=== PATIENT | female | born 1980 | race Two or more races ===

== ENCOUNTER 2024-04-09 12:23 | Emergency (ER) | payer OTHER ==
[~2024-04-09] VITALS: Ht 149.9 cm; Wt 68.0 kg
[2024-04-09] MEDS ORDERED: DEXAMETHASONE SODIUM PHOSPHATE 4 MG/ML VIAL IM STA (15:07)
[2024-04-09] MEDS ORDERED: ORPHENADRINE CITRATE 30 MG/ML AMPUL IM STA (15:08)
[2024-04-09] MEDS ORDERED: SODIUM CHLORIDE 0.45 % 1,000 ML IV SCH (15:45)
[2024-04-09 15:52] LABS: HEMATOCRIT 38.9 % (36.0-45.00); HEMOGLOBIN 13.1 g/dL (12.0-15.00); MEAN CELL VOLUME 86.6 fL (80.00-100.00); MEAN CORPUSCULAR HEMOGLOBIN 29.2 pg (27.00-32.0); MEAN CORPUSCULAR HGB CONC 33.7 g/dl (32.0-36.0); PLATELET COUNT 406 K/uL (150-450); RED BLOOD COUNT 4.49 M/uL (4.00-6.00); RED CELL DISTRIBUTION WIDTH 14.3 % (11.5-14.5)
[2024-04-09] MEDS ORDERED: JULEBER 28 DAY1 EACH PO (17:55)
== END 2024-04-09 19:25 | disposition home or self-care (01) ==
LOC: ER 12:25
DX: N92.1 Excessive and frequent menstruation with irregular cycle (principal)

== ENCOUNTER → 2024-12-08 | Emergency (ER) | payer OTHER ==
[~2024-12-08] VITALS: Ht 162.6 cm; Wt 104.3 kg
[~2024-12-08] MED LIST: ELIQUIS5 MG PO; JULEBER 28 DAY1 EACH PO; LOSARTAN POTAS100 MG PO
[2024-12-08 20:35] VITALS: BP 128/85; O2SAT 100
== END | disposition left against medical advice (07) ==
LOC: ER 19:54
DX: Z53.21 Procedure and treatment not carried out due to patient leaving prior to being seen by health care provider (principal)

== ENCOUNTER 2024-12-28 18:58 | Inpatient (IN) | payer OTHER ==
[~2024-12-28] VITALS: Ht 149.9 cm; Wt 85.3 kg
--- NOTE | 2024-12-28 19:04 | NUR ---
SE RECIBE PACIENTE ALERTA Y ORIENTADA X3 LA CUAL REFIERE VENIR A CAUSA DE QUE ALST ESTADO EXPERIMENTANDO FATIGA Y DOLOR DE PECHO ESPONTANEO. AL MOMENTO PACIENTE REFIERE QUE KAHN CARDIOLOGO DR. MORRISONORO HOLLINS DE [place]GOLAS.
--- NOTE | 2024-12-28 20:41 | NUR ---
SE ORIENTA A PACIENTE SOBRE TX MEDICO Y EL MISMO REFIERE ENTENDER Y ACEPYTAR ARIANNA. SE PROCEDE A TRINO MUESTRAS DE LAB. BAJO MEDIDAS ASEPTICAS.
[2024-12-28 20:46] LABS: URINE APPEARANCE Clear; URINE BILIRRUBIN Negative (NEGATIVE); URINE BLOOD Moderate; URINE COLOR Yellow; URINE GLUCOSE Negative (NEGATIVE); URINE KETONE Negative (NEGATIVE); URINE LEUKOCYTE Small; URINE NITRATE Negative; URINE PROTEIN >=1000 (NEGATIVE); URINE UROBILINOGEN 0.2 E.U./dl
[2024-12-28 20:47] LABS: URINE BACTERIA 807.7 uL (0.0-1933); URINE RBC 6.7 uL (0.0-20.8); URINE WBC 253.4 uL (0.0-23.2)
[2024-12-28 20:57] LABS: INR 1.12; PARTIAL THROMBOPLASTIN TIME 26.2 SECONDS (22.0-34.0); PROTHROMBIN TIME 12.1 SECONDS (9.0-11.5)
[2024-12-28 21:30] LABS: ALBUMIN 4.2 gm/dL (3.4-5.0); BILIRUBIN TOTAL 0.56 mg/dL (0.3-1.2); CALCIUM 10.1 mg/dL (8.5-10.1); CREATININE SERUM 1.08 mg/dL (0.55-1.02); GFR 55.11; GLOBULINA 4.1 G/DL (2.4-3.5); POTASSIUM 3.21 mEq/L (3.5-5.1); TOTAL PROTEIN 8.3 gm/dL (6.4-8.2)
[2024-12-28] MEDS ORDERED: FUROsemide 20 MG/2 ML VIAL IV SCH (22:43)
[2024-12-28] MEDS ORDERED: ATORVASTATIN CALCIUM 40 MG TABLET PO SCH (22:44)
[2024-12-28] MEDS ORDERED: DEXAMETHASONE SODIUM PHOSPHATE 4 MG/ML VIAL IV ONE (22:45)
[2024-12-28] MEDS ORDERED: LEVOTHYROXINE SODIUM 100 MCG/VIAL VIAL IV ONE (22:45)
[2024-12-28] MEDS ORDERED: ACETAMINOPHEN 500 MG GEL..CAP PO PRN (22:45)
[2024-12-28] MEDS ORDERED: POTASSIUM CHLORIDE 20MEQ/100ML H2O PB IV ONE ×2 (23:15→23:26)
[2024-12-28] MEDS ORDERED: FUROsemide 20 MG/2 ML VIAL ONE (23:25)
[2024-12-28] MEDS ORDERED: DEXAMETHASONE SODIUM PHOSPHATE 4 MG/ML VIAL ONE (23:26)
[2024-12-28 23:58] LABS: MAGNESIUM 1.9 mg/dL (1.8-2.4); PHOSPHOROUS 3.3 mg/dL (2.5-4.9)
[2024-12-29 00:10] VITALS: BP 133/85; O2SAT 95
[2024-12-29 00:11] VITALS: BP 133/85
[2024-12-29 00:21] LABS: BASO % 1.2 % (0.1-1.2); EOS % 4.6 % (0.7-7.0); HEMATOCRIT 34.9 % (34.1-44.9); HEMOGLOBIN 12.1 g/dL (11.2-15.7); LYMPH % 20.9 % (19.3-53.1); MEAN CORPUSCULAR HEMOGLOBIN 32.1 pg (25.6-32.2); MONO % 9.3 % (4.7-12.5); NEUT # 2.75 (1.56-6.13); NEUT % 63.8 % (34.0-71.1); PLATELET COUNT 342 K/uL (163-369); RED BLOOD COUNT 3.77 M/uL (3.93-5.22); RED CELL DISTRIBUTION WIDTH 12.8 % (11.6-14.4)
[2024-12-29] MEDS ORDERED: APIXABAN 5 MG TABLET PO SCH (05:00)
[2024-12-29] MEDS ORDERED: LEVOTHYROXINE SODIUM 100 MCG TABLET PO SCH (06:00)
[2024-12-29 07:46] LABS: CHOL HDL RATIO 8.6 (0-5.0)
[2024-12-29 08:59] VITALS: BP 112/76
[2024-12-29] MEDS ORDERED: FAMOTIDINE/PF 20 MG in 0.9 % SODIUM CHLORIDE 8 ML IV PUSH SCH (09:00)
[2024-12-29] MEDS ORDERED: LOSARTAN POTASSIUM 100 MG TABLET PO SCH (09:00)
[2024-12-29] MEDS ORDERED: LEVOTHYROXINE SODIUM 100 MCG/VIAL VIAL IV NR (11:00)
[2024-12-29 13:05] VITALS: O2SAT 93
[2024-12-29 15:48] VITALS: O2SAT 97
[2024-12-29 16:38] VITALS: BP 125/88; O2SAT 98
[2024-12-30 00:40] VITALS: BP 111/75; O2SAT 96
[2024-12-30] MEDS ORDERED: FAMOTIDINE/PF 20 MG/2 ML VIAL ONE (08:43)
[2024-12-30] MEDS ORDERED: FUROsemide 20 MG/2 ML VIAL IV SCH (09:00)
[2024-12-30 09:41] VITALS: BP 132/88
[2024-12-30] MEDS ORDERED: LOSARTAN POTASSIUM 25 MG TABLET PO SCH (09:57)
[2024-12-30 16:57] VITALS: BP 117/83; O2SAT 95
[2024-12-31 02:49] VITALS: BP 103/69; O2SAT 96
[2024-12-31 09:19] VITALS: BP 120/85; O2SAT 98
[2024-12-31 17:04] LABS: URINE PROT QUANT 24HR 272.9 MG/DL
[2024-12-31 17:14] LABS: URINE PROT QUANT 24 HR 2183.2 MG/24HR (42-225)
[2024-12-31 17:18] LABS: CREATINE CLEARANCE 46.8 ML/MIN (97-137); CREATININE SERUM 1.15 mg/dL (0.6-1.0)
[2024-12-31 18:25] VITALS: BP 103/73; O2SAT 97
[2025-01-01 02:04] VITALS: BP 114/61; O2SAT 94
[2025-01-01 08:18] LABS: BASO % 1.1 % (0.1-1.2); EOS # 0.19 (0.04-0.54); EOS % 5.1 % (0.7-7.0); HEMATOCRIT 36.7 % (34.1-44.9); HEMOGLOBIN 12.5 g/dL (11.2-15.7); LYMPH # 0.68 (1.18-3.74); LYMPH % 18.4 % (19.3-53.1); MEAN CORPUSCULAR HEMOGLOBIN 32.9 pg (25.6-32.2); MONO # 0.44 (0.24-0.82); MONO % 11.9 % (4.7-12.5); NEUT # 2.33 (1.56-6.13); NEUT % 63.2 % (34.0-71.1); PLATELET COUNT 339 K/uL (163-369); RED CELL DISTRIBUTION WIDTH 12.8 % (11.6-14.4)
[2025-01-01 08:50] LABS: CALCIUM 9.4 mg/dL (8.5-10.1); CREATININE SERUM 1.09 mg/dL (0.55-1.02); GFR 54.53; POTASSIUM 3.62 mEq/L (3.5-5.1)
[2025-01-01 10:02] VITALS: BP 114/76; O2SAT 97
[2025-01-01 18:07] VITALS: BP 112/75; O2SAT 96
[2025-01-03 15:12] LABS: a:g ratio 0.9 (0.7-1.7); alpha 1 g 0.2 g/dL (0.0-0.4); beta g 1.8 g/dL (0.7-1.3); gamma g 1.3 g/dL (0.4-1.8); globulin t 4.3 g/dL (2.2-3.9); prot total 8.2 g/dL (6.0-8.5)
== END 2025-01-01 21:17 | disposition home or self-care (01) | DRG 644 ==
LOC: ER 19:06 → MEDI 22:51 → SEC-K 22:51 → MEDI 23:25
PROVIDERS: General Practice; Internal Medicine Nephrology; Student in an Organized Health Care Education/Training Program; ADMIT Internal Medicine; ATTEND Internal Medicine
PROC: B246ZZZ Ultrasonography of Right and Left Heart (ICD-10-PCS; principal; 2024-12-28)
PROC: 4A12X4Z Monitoring of Cardiac Electrical Activity, External Approach (ICD-10-PCS; 2024-12-29)
DX: E03.8 Other specified hypothyroidism (principal); N04.9 Nephrotic syndrome with unspecified morphologic changes; T45.1X5A Adverse effect of antineoplastic and immunosuppressive drugs, initial encounter; C76.0 Malignant neoplasm of head, face and neck; R60.1 Generalized edema; R53.1 Weakness; I10 Essential (primary) hypertension